=== PATIENT | male | born 1945 | race Caucasian/White ===

== ENCOUNTER → 2017-05-13 | Outpatient (CLI) | payer MEDICARE, OTHER ==
[~2017-05-13] MED LIST: ACEBUTCAFT PO; DEXLANSOPRAZOLE PO; ESOM20 PO; FENO48 PO; OXYACE5T PO; ROSU10TA PO; SUMA25 PO; TRAM50 PO
== END | disposition home or self-care (01) ==
LOC: LAB 16:36
DX: N48.1 Balanitis (principal); L30.9 Dermatitis, unspecified
CPT/HCPCS: 87070; 87077; 87147; 87186; 87205

== ENCOUNTER 2018-04-21 07:38 | Day surgery (SDC) | payer MEDICARE, OTHER ==
[~2018-04-21] VITALS: Ht 167.6 cm; Wt 68.0 kg
[2018-04-21] MEDS ORDERED: FINA5 PO (08:09)
[2018-04-21] MEDS ORDERED: ASPI81CH PO (08:09)
[2018-04-21] MEDS ORDERED: NEBI5 PO (08:09)
[2018-04-21] MEDS ORDERED: Percocet 7.5-31 EACH PO (08:10)
[2018-04-21] MEDS ORDERED: VIIBRYD40 MG PO (08:10)
[2018-04-21] MEDS ORDERED: Imitrex100 MG PO (08:11)
[2018-04-21] MEDS ORDERED: Zanaflex4 M1 PO (08:12)
[2018-04-21] MEDS ORDERED: Multivitamin1 EAC1 PO (08:12)
[2018-04-21] MEDS ORDERED: GABA300T24 PO (08:13)
[2018-04-21] MEDS ORDERED: BUSP10 PO (08:13)
[2018-04-21] MEDS ORDERED: ATOR40TA PO (08:13)
== END 2018-04-21 09:00 | disposition home or self-care (01) ==
LOC: MHTC 07:38
DX: I48.0 Paroxysmal atrial fibrillation (principal); Z88.8 Allergy status to other drugs, medicaments and biological substances
CPT/HCPCS: 33286; J1644; J7040

== ENCOUNTER 2019-06-08 12:48 | Day surgery (SDC) | payer MEDICARE, OTHER ==
[~2019-06-08] VITALS: Ht 165.1 cm; Wt 68.3 kg
[~2019-06-08 12:48] MED LIST changes: +ASPI81CH PO; +ATOR40TA PO; +BUSP10 PO; +FINA5 PO; +GABA300T24 PO; +Imitrex100 MG PO; +Multivitamin1 EAC1 PO; +NEBI5 PO; +Percocet 7.5-31 EACH PO; +VIIBRYD40 MG PO; +Zanaflex4 M1 PO
--- NOTE | 2019-06-08 13:22 | NUR ---
Patient up to Ambulate independently. Gait steady. Patient states colon prep results clear. History, Chart, Medications and Allergies reviewed before start of procedure. Lungs clear T/O to Auscultation. Pre-Op teaching done. Pt verbalizes understanding. Patient States Post-Procedure ride home has been arranged WITH GARY.
--- NOTE | 2019-06-08 14:00 | NUR ---
06/08/19 1400 [place] PATIENT DETERMINED TO BE ASA APPROPRIATE FOR PROPOFOL SEDATION PRIOR TO START OF PROCEDURE BY Bite Block PlacedDentures removed and placed in cup3-LEAD EKG REVIEWED WITH PHYSICIAN PRIOR TO START OF PROCEDURE.Patient to ENDO 1History, Chart, Medications and Allergies reviewed before start of procedure.Glasses RemovedMONITOR INTACT WITH CONTINUOUS PULSE OXIMETRY AND INTERMITTENT BP.O2 VIA N/C INTACT THROUGHOUT SEDATION/PROCEDURE.
--- NOTE | 2019-06-08 15:28 | NUR ---
Patient up to Ambulate independently. Gait steady. Discharge instructions reviewed with patient. Patient verbalizes understanding. Copy given to patient to take home. Discharged via wheelchair to private car for ride home WITH .
== END 2019-06-08 15:00 | disposition home or self-care (01) ==
LOC: ORSCMMR 12:48 → ORD 14:00 → ORSCMMR 15:00
PROVIDERS: Student in an Organized Health Care Education/Training Program
PROC: 0DBN8ZX Excision of Sigmoid Colon, Via Natural or Artificial Opening Endoscopic, Diagnostic (ICD-10-PCS; principal; 2019-06-08 14:00)
PROC: 0DB58ZX Excision of Esophagus, Via Natural or Artificial Opening Endoscopic, Diagnostic (ICD-10-PCS; principal; 2019-06-08 14:00)
PROC: 0DB98ZX Excision of Duodenum, Via Natural or Artificial Opening Endoscopic, Diagnostic (ICD-10-PCS; principal; 2019-06-08 14:00)
PROC: 0DBK8ZX Excision of Ascending Colon, Via Natural or Artificial Opening Endoscopic, Diagnostic (ICD-10-PCS; principal; 2019-06-08 14:00)
PROC: 0DB78ZX Excision of Stomach, Pylorus, Via Natural or Artificial Opening Endoscopic, Diagnostic (ICD-10-PCS; principal; 2019-06-08 14:00)
PROC: 0DBM8ZX Excision of Descending Colon, Via Natural or Artificial Opening Endoscopic, Diagnostic (ICD-10-PCS; principal; 2019-06-08 14:00)
PROC: 0DBL8ZX Excision of Transverse Colon, Via Natural or Artificial Opening Endoscopic, Diagnostic (ICD-10-PCS; principal; 2019-06-08 14:00)
PROC: 0DBH8ZX Excision of Cecum, Via Natural or Artificial Opening Endoscopic, Diagnostic (ICD-10-PCS; principal; 2019-06-08 14:00)
DX: R13.10 Dysphagia, unspecified (principal); Z12.11 Encounter for screening for malignant neoplasm of colon; D12.2 Benign neoplasm of ascending colon; D12.0 Benign neoplasm of cecum; D12.3 Benign neoplasm of transverse colon; D12.4 Benign neoplasm of descending colon; D12.5 Benign neoplasm of sigmoid colon; K29.80 Duodenitis without bleeding; K22.2 Esophageal obstruction; K29.70 Gastritis, unspecified, without bleeding; E78.5 Hyperlipidemia, unspecified; Z79.899 Other long term (current) drug therapy
CPT/HCPCS: 88305; 88342; J2704; J7120

== ENCOUNTER 2021-01-31 08:06 | Emergency (ER) | payer MEDICARE, OTHER ==
[~2021-01-31] VITALS: Ht 165.1 cm; Wt 65.8 kg
[2021-01-31] MEDS ORDERED: Percocet 7.5-31 EACH PO (09:20)
== END 2021-01-31 09:40 | disposition home or self-care (01) ==
LOC: ER 08:06
DX: S22.41XA Multiple fractures of ribs, right side, initial encounter for closed fracture (principal); Z88.1 Allergy status to other antibiotic agents; Z88.8 Allergy status to other drugs, medicaments and biological substances; Z79.899 Other long term (current) drug therapy; Z79.82 Long term (current) use of aspirin; Z87.891 Personal history of nicotine dependence; W01.0XXA Fall on same level from slipping, tripping and stumbling without subsequent striking against object, initial encounter
CPT/HCPCS: 71046; 99283-25; A9270

== ENCOUNTER → 2023-01-26 | Outpatient (CLI) | payer MEDICARE, OTHER ==
[2023-01-27 17:25] LABS: Microalbumin, Urine Quant. <5.000 mg/L (0.000-20.000); Protein, Urine Quantitative 5.9 mg/dL (0.0-11.9)
== END | disposition home or self-care (01) ==
LOC: LAB SHORT 20:00 → LAB 20:00 → LAB FUT 01-22 16:40
PROVIDERS: Internal Medicine Nephrology
DX: N18.30 Chronic kidney disease, stage 3 unspecified (principal); D63.1 Anemia in chronic kidney disease; R76.9 Abnormal immunological finding in serum, unspecified; R94.5 Abnormal results of liver function studies; R94.6 Abnormal results of thyroid function studies; D51.8 Other vitamin B12 deficiency anemias; D52.8 Other folate deficiency anemias; D50.9 Iron deficiency anemia, unspecified
CPT/HCPCS: 81050; 82043; 82570; 84156

== ENCOUNTER 2024-04-28 09:36 | Day surgery (SDC) | payer MEDICARE, OTHER ==
[~2024-04-28] VITALS: Ht 165.1 cm; Wt 68.4 kg
[~2024-04-28 09:36] MED LIST changes: +Lactated Ringer's 1,000 ML IV ONE; +propofoL 50 ML IV ONE
[2024-04-28] MEDS ORDERED: ALLO100 (10:12)
[2024-04-28] MEDS ORDERED: AIMOVIG AU70 MG/1 ML (10:12)
[2024-04-28] MEDS ORDERED: Nexium40 MG (10:13)
[2024-04-28] MEDS ORDERED: BUTALB-ACETAMI1 EAC5 (10:13)
[2024-04-28] MEDS ORDERED: FISH OIL 1,0001 EA10 (10:13)
[2024-04-28] MEDS ORDERED: MIRALAX17 GM (10:14)
[2024-04-28] MEDS ORDERED: TAMS.4ER (10:14)
[2024-04-28] MEDS ORDERED: SUCRALFATE (10:14)
[2024-04-28] MEDS ORDERED: TRAM50 (10:15)
[2024-04-28] MEDS ORDERED: TOUJEO MAX300 UNIT/2 (10:15)
[2024-04-28] MEDS ORDERED: Lactated Ringer's 1,000 ML IV ONE (10:41)
[2024-04-28 12:10] VITALS: BP 107/66
== END 2024-04-28 12:09 | disposition home or self-care (01) ==
LOC: ORSCSDS 09:36
PROVIDERS: Internal Medicine Gastroenterology
PROC: 0D758ZZ Dilation of Esophagus, Via Natural or Artificial Opening Endoscopic (ICD-10-PCS; principal; 2024-04-28 11:00)
DX: R13.10 Dysphagia, unspecified (principal); K21.00 Gastro-esophageal reflux disease with esophagitis, without bleeding; K22.2 Esophageal obstruction; E11.9 Type 2 diabetes mellitus without complications; E78.5 Hyperlipidemia, unspecified; Z85.46 Personal history of malignant neoplasm of prostate; Z79.899 Other long term (current) drug therapy
CPT/HCPCS: 82947; C1726; J2704; J7120